=== PATIENT | male | born 1965 | race American Indian/Alaskan Native ===

== ENCOUNTER 2021-11-22 20:55 | Emergency (ER) | payer SELFPAY ==
[2021-11-22 22:20] VITALS: BP 189/114
--- NOTE | 2021-11-23 09:50 | Electrocardiograph Report ---
[facility] Test Date: 2021-11-22 Test Time: 21:20:44 Pat Name: MARTINE TAMAYO Department: Room: Gender: M Hand Trucker: BENY : 1965 Requested By: ED DOC Order Number: [id number] Reading MD: Aashish Mcfarlane Measurements Intervals [place] Rate: 87 P: 70 TN: 144 QRS: 42 QRSD: 90 T: 21 QT: 360 QTc: 433 Interpretive Statements Sinus rhythm Probable left ventricular hypertrophy No previous ECG available for comparison Electronically Signed On 11-23-2021 9:50:32 EDT by Aashish Mcfarlane
== END 2021-11-23 03:32 | disposition left against medical advice (07) ==
LOC: ED 20:55
DX: R07.89 Other chest pain (principal); Z53.21 Procedure and treatment not carried out due to patient leaving prior to being seen by health care provider
CPT/HCPCS: 93005

== ENCOUNTER 2021-11-25 12:08 | Emergency (ER) | payer SELFPAY ==
[2021-11-25 12:25] VITALS: BP 183/98
[2021-11-25 14:58] LABS: Alanine Aminotransferase 15 units/L (7-56); Albumin 4.1 g/dL (3.9-5); BUN/Creatinine Ratio 20; Blood Urea Nitrogen 20 mg/dL (9-20); Calcium 9.3 mg/dL (8.4-10.2); Hemolysis Index 14
[2021-11-25 15:10] LABS: Basophils # (Auto) 0.1 K/mm3 (0.0-0.1); Basophils % (Auto) 0.9 % (0.0-1.8); Eosinophils # (Auto) 0.6 K/mm3 (0.0-0.4); Eosinophils % (Auto) 10.2 % (0.0-4.3); Lymphocytes # (Auto) 1.4 K/mm3 (1.2-5.4); Lymphocytes % (Auto) 24.4 % (13.4-35.0); Mean Corpuscular HGB Conc 35 % (32-34); Mean Corpuscular Volume 88 fl (84-94); Monocytes # (Auto) 0.5 K/mm3 (0.0-0.8); Monocytes % (Auto) 9.6 % (0.0-7.3); Platelet Count 325 K/mm3 (140-440); Red Blood Count 5.15 M/mm3 (3.65-5.03); Red Cell Distribution Width 12.8 % (13.2-15.2)
[2021-11-25 15:34] LABS: Hemoglobin 15.7 gm/dl (11.8-15.2)
--- NOTE | 2021-11-25 15:55 | Emergency Department Report ---
ED General Adult HPI - General Chief complaint: Medical Clearance Stated complaint: FEELING WEAK Source: patient Mode of arrival: Ambulatory Limitations: No Limitations - History of Present Illness Initial comments: Patient is a 55-year-old -[place] male with no past medical history who presents to the ED with complaint of acute onset persistent intermittent generalized fatigue and weakness for the last 3 days. Patient states that the symptoms have been intermittent and worse especially in the morning. Patient states that he suspected that he may have been anemic like to be evaluated and to be checked for anemia. Patient denies chest pain, shortness of breath, nausea and vomiting, fever and chills, cough, headache, diarrhea or abdominal pain. MD Complaint: Generalized fatigue -: Sudden, days(s) (3) Location: head Radiation: non-radiation Severity scale (0 -10): 0 Consistency: intermittent Improves with: none Worsens with: none Associated Symptoms: malaise. denies: denies other symptoms, confusion, chest pain, cough, diaphoresis, fever/chills, headaches, loss of appetite, shortness of breath Treatments Prior to Arrival: none - Related Data Previous Rx's Medication Instructions Recorded Last Taken Type Potassium Chloride [Klor-Con M20] 20 meq PO Q12H #10 11/25/21 Unknown Rx Allergies Allergy/AdvReac Type Severity Reaction Status Date / Time No Known Allergies Allergy Verified 11/25/21 12:23 ED Review of Systems ROS: Stated complaint: FEELING WEAK Other details as noted in HPI Constitutional: malaise, weakness. denies: chills, fever Eyes: denies: eye pain, eye discharge, vision change ENT: denies: ear pain, throat pain Respiratory: denies: cough, shortness of breath, wheezing Cardiovascular: denies: chest pain, palpitations Endocrine: no symptoms reported Gastrointestinal: denies: abdominal pain, nausea, vomiting, diarrhea Genitourinary: denies: urgency, dysuria Musculoskeletal: denies: back pain, joint swelling, arthralgia Skin: denies: rash, lesions Neurological: denies: headache, weakness, paresthesias Psychiatric: denies: anxiety, depression Hematological/Lymphatic: denies: easy bleeding, easy bruising ED Past Medical Hx - Medications Home Medications: Home Medications Medication Instructions Recorded Confirmed Last Taken Type Potassium Chloride [Klor-Con M20] 20 meq PO Q12H #10 11/25/21 Unknown Rx ED Physical Exam - General Limitations: No Limitations General appearance: alert, in no apparent distress - Head Head exam: Present: atraumatic, normocephalic, normal inspection - Eye Eye exam: Present: normal appearance, PERRL, EOMI Pupils: Present: normal accommodation - ENT ENT exam: Present: normal exam, normal orophraynx, mucous membranes moist, TM's normal bilaterally, normal external ear exam - Neck Neck exam: Present: normal inspection, full ROM. Absent: tenderness - Respiratory Respiratory exam: Present: normal lung sounds bilaterally. Absent: respiratory distress, wheezes, rales, rhonchi, chest wall tenderness, accessory muscle use, decreased breath sounds, prolonged expiratory - Cardiovascular Cardiovascular Exam: Present: regular rate, normal rhythm. Absent: systolic murmur, diastolic murmur, rubs, gallop - GI/Abdominal GI/Abdominal exam: Present: soft, normal bowel sounds. Absent: tenderness, guarding, rebound, hyperactive bowel sounds, hypoactive bowel sounds, organomegaly, pulsatile mass - Extremities Exam Extremities exam: Present: normal inspection, full ROM, normal capillary refill. Absent: tenderness, pedal edema, joint swelling, calf tenderness - Back Exam Back exam: Present: normal inspection, full ROM. Absent: tenderness, CVA tenderness (R), CVA tenderness (L), muscle spasm, paraspinal tenderness - Neurological Exam Neurological exam: Present: alert, oriented X3, CN II-XII intact, normal gait, reflexes normal - Psychiatric Psychiatric exam: Present: normal affect, normal mood - Skin Skin exam: Present: warm, dry, intact, normal color. Absent: rash ED Course Vital Signs 11/25/21 12:23 Temperature 98 F Pulse Rate 92 H Respiratory 18 Rate Blood Pressure 183/98 [Left] O2 Sat by Pulse 98 Oximetry ED Medical Decision Making - Lab Data Result diagrams: 11/25/21 13:35 11/25/21 13:35 - Medical Decision Making This is a 55-year-old -[place] male with no past medical history who presents to the ED with complaint of acute onset persistent intermittent generalized fatigue and weakness for the last 3 days. Patient states that the symptoms have been intermittent and worse especially in the morning. Patient states that he suspected that he may have been anemic like to be evaluated and to be checked for anemia. In the ED, patient is alert and oriented x3 and is not in any distress. All lab test results were reviewed and are all nonactionable except for mild hypokalemia of 3.3 mmol/L. Patient was therefore treated with potassium chloride 40 meq p.o. x1 and was discharged home on advised to eat green vegetables, bananas and other foods rich in potassium and to follow-up with his primary care physician in 7 to 10 days for reevaluation. Patient was advised to return to the ED immediately if symptoms get worse. - Differential Diagnosis : Hypothyroidism; Critical care attestation.: If time is entered above; I have spent that time in minutes in the direct care of this critically ill patient, excluding procedure time. ED Disposition Clinical Impression: Generalized weakness, Acute hypokalemia Disposition: 01 HOME / SELF CARE / HOMELESS Is pt being admited?: No Does the pt Need Aspirin: No Condition: Stable Instructions: Weakness, [id number], Hypokalemia Additional Instructions: All lab test results were reviewed and are all nonactionable except for mild hypokalemia. Therefore take medication with food, drink plenty of fluids, follow-up with your primary care physician in 7 to 10 days for reevaluation. Increase intake of foods that are rich in potassium including bananas and, green vegetables and fish products. Return to the ED immediately if symptoms get worse. Prescriptions: Potassium Chloride [Klor-Con M20] 20 meq PO Q12H #10 Referrals: [facility] [Provider Group] - 3-5 Days Time of Disposition: 15:56 Print Language: JAPANESE
== END 2021-11-25 16:20 | disposition home or self-care (01) ==
LOC: ED 12:08
DX: E87.6 Hypokalemia (principal); Z79.899 Other long term (current) drug therapy
CPT/HCPCS: 36415; 80053; 84443; 85025; 99283